=== PATIENT | male | born 1970 | race Two or more races ===

== ENCOUNTER 2017-05-10 08:45 | Inpatient (IN) | payer OTHER ==
[~2017-05-10] VITALS: Ht 182.9 cm; Wt 79.4 kg
[~2017-05-10 08:45] MED LIST: AMOX1TAB5 PO; GAS-X125 M1 PO
[2017-05-22] MEDS ORDERED: OXYC1TAB9 PO (10:17)
[2017-05-22] MEDS ORDERED: Intestinex CAP PO (10:18)
[2017-05-22] MEDS ORDERED: Mylicon 125MG PO (10:18)
== END 2017-05-22 11:22 | disposition home or self-care (01) | DRG 330 ==
LOC: SURG 05-19 06:38 → O/R 05-19 06:38 → SURH 05-19 07:00 → SURG 05-19 13:07
PROVIDERS: Surgery
PROC: 0DNW4ZZ Release Peritoneum, Percutaneous Endoscopic Approach (ICD-10-PCS; 2017-05-19)
PROC: 0DQB4ZZ Repair Ileum, Percutaneous Endoscopic Approach (ICD-10-PCS; principal; 2017-05-19 07:00)
DX: Z43.2 Encounter for attention to ileostomy (principal); K57.20 Diverticulitis of large intestine with perforation and abscess without bleeding